=== PATIENT | female | born 1995 | race Caucasian/White ===

== ENCOUNTER 2016-09-02 21:10 | Emergency (ER) | payer BC ==
[~2016-09-02] VITALS: Ht 160 cm; Wt 61.9 kg
[2016-09-02] MEDS ORDERED: LEXA1TAB PO (21:22)
[2016-09-02] MEDS ORDERED: TRIL1TAB PO (21:22)
[2016-09-02] MEDS ORDERED: SERO50TA PO (21:22)
[2016-09-02] MEDS ORDERED: MEDR1VL IM (21:25)
[2016-09-02] MEDS ORDERED: DICYCLOMINE INJ 20MG/2ML (J0500) IM ONE (21:45)
[2016-09-02] MEDS ORDERED: NS 1,000 ML IV ONE (21:45)
[2016-09-02 22:22] LABS: BASO # 0.1 K/mm3 (0.0-0.2); BASO % 0.9 % (0.0-1.0); EOS # 0.2 K/mm3 (0.0-0.50); EOS % 2.3 % (0.0-3.0); LARGE UNSTAINED CELL # 0.1 K/mm3 (0.0-0.4); LARGE UNSTAINED CELL % 1.3 % (0.0-4.0); LYMPH # 2.5 K/mm3 (1.5-6.5); LYMPH % 28.5 % (24.0-44.0); MEAN CORPUSCULAR HEMOGLOBIN 29.6 pg (27.0-33.0); MEAN CORPUSCULAR HGB CONC 34.7 g/dl (32.0-36.5); MEAN CORPUSCULAR VOLUME 85.3 fl (80.0-96.0); MONO # 0.5 K/mm3 (0.0-0.8); MONO % 5.9 % (0.0-5.0); NEUTROPHILS # 5.5 K/mm3 (1.8-7.7); NEUTROPHILS % 61.1 % (36.0-66.0); PLATELET COUNT, AUTOMATED 294 k/mm3 (150-450); RED CELL DISTRIBUTION WIDTH 12.4 % (11.5-14.5); WHITE BLOOD COUNT 8.9 K/mm3 (4.0-10.0)
[2016-09-02 22:41] LABS: CONTROL LINE HCG INT CTR LINE PRESENT
[2016-09-02 22:48] LABS: ALBUMIN 4.2 GM/DL (3.2-5.2); ALBUMIN/GLOBULIN RATIO 1.35 (1.00-1.93); ALKALINE PHOSPHATASE 102 U/L (45-117); ALT/SGPT 27 U/L (12-78); ANION GAP 7 MEQ/L (8-16); AST/SGOT 15 U/L (15-37); BILIRUBIN,DIRECT < 0.1 MG/DL (0.0-0.2); BILIRUBIN,TOTAL 0.3 MG/DL (0.2-1.0); BLOOD UREA NITROGEN 9 MG/DL (7-18); CALCIUM LEVEL 8.7 MG/DL (8.5-10.1); CARBON DIOXIDE LEVEL 26 MEQ/L (21-32); CHLORIDE LEVEL 108 MEQ/L (98-107); CREATININE FOR GFR 0.72 MG/DL (0.55-1.02); GLOMERULAR FILTRATION RATE > 60.0 (>60); GLUCOSE, FASTING 90 MG/DL (70-105); SODIUM LEVEL 141 MEQ/L (136-145); TOTAL PROTEIN 7.3 GM/DL (6.4-8.2)
[2016-09-02] MEDS ORDERED: PROT1TAB2 PO (23:24)
[2016-09-02] MEDS ORDERED: CARA1TAB6 PO (23:24)
[2016-09-02] MEDS ORDERED: PANTOPRAZOLE 40MG TAB (PROTONIX) PO ONE (23:30)
[2016-09-02] MEDS ORDERED: SUCRALFATE 1 GM TAB PO ONE (23:30)
[2016-09-02 23:34] VITALS: BP 151/105
== END 2016-09-02 23:37 | disposition home or self-care (01) ==
LOC: M ED 21:10
DX: K21.9 Gastro-esophageal reflux disease without esophagitis (principal); K58.0 Irritable bowel syndrome with diarrhea; R35.0 Frequency of micturition; F41.9 Anxiety disorder, unspecified; F33.9 Major depressive disorder, recurrent, unspecified; Z88.5 Allergy status to narcotic agent; Z79.899 Other long term (current) drug therapy; Z79.3 Long term (current) use of hormonal contraceptives
CPT/HCPCS: 80048; 80076; 81001; 83690; 84703; 85025; 96361; 96372; 99283; J0500